=== PATIENT | male | born 1965 | race Caucasian/White ===

== ENCOUNTER → 2024-01-28 11:46 | Outpatient (REF) | payer SELFPAY | LOC: HWRAD 11:46 | PROVIDERS: ATTENDING PHYSICIAN Internal Medicine Cardiovascular Disease; FAMILY PHYSICIAN Family Medicine | DX: E78.2 Mixed hyperlipidemia (principal) | CPT/HCPCS: 75571 ==

== ENCOUNTER → 2025-09-21 12:02 | Outpatient (REF) | payer OTHER, SELFPAY | LOC: MRI 3T 12:02 | PROVIDERS: ATTENDING PHYSICIAN Specialist; FAMILY PHYSICIAN Family Medicine | DX: C61 Malignant neoplasm of prostate (principal) | CPT/HCPCS: 72197; A9575 ==